=== PATIENT | female | born 1980 | race Caucasian/White ===

== ENCOUNTER 2020-09-11 10:48 | Day surgery (SDC) | payer OTHER ==
[2020-09-09 15:38] LABS: BASOPHILS % (AUTO) 1 % (0-1); EOSINOPHILS % (AUTO) 3 % (1-7); LYMPHOCYTES % (AUTO) 30 % (22-44); MEAN CORPUSCULAR HEMOGLOBIN 31.3 pg (27.0-34.8); MEAN CORPUSCULAR HGB CONC 34.3 g/dL (32.4-35.8); MEAN PLATELET VOLUME 7.7 fL (7.4-10.4); MONOCYTES % (AUTO) 9 % (2-9); NEUTROPHILS % (AUTO) 58 % (42-75); PLATELET COUNT 223 x10^3/uL (130-400); RED BLOOD COUNT 4.39 x10^6/uL (3.82-5.3)
[2020-09-09 15:40] LABS: MD NO
[~2020-09-11] VITALS: Ht 162.6 cm; Wt 58.5 kg
[~2020-09-11 10:48] MED LIST: DEXAMETHASONE 4 MG/ML, 1ML ONE; KETOROLAC 30 MG/1 ML ONE; LACT1CAP35 PO; ONDANSETRON 2MG/ML, 2ML ONE; PNV1TABL11 PO
[2020-09-11] MEDS ORDERED: MIDAZOLAM 1 MG/ML, 2ML ONE ×2 (11:18→12:24)
[2020-09-11] MEDS ORDERED: FENTANYL PF 100 MCG/2ML ONE (11:18)
[2020-09-11 11:22] VITALS: BP 103/66
[2020-09-11] MEDS ORDERED: LABETALOL 5MG/ML, 20ML IV PRN ×2 (11:30→13:30)
[2020-09-11] MEDS ORDERED: LIDOCAINE-MPF 1%, 2ML INFIL ONE (11:30)
[2020-09-11] MEDS ORDERED: PROMETHAZINE 25 MG/ML, 1ML IVPush PRN ×2 (11:30→13:30)
[2020-09-11] MEDS ORDERED: HYDROmorphone 1 MG/ML, 1ML INJ IVPush PRN ×2 (11:30→13:30)
[2020-09-11] MEDS ORDERED: CHLORHEXIDINE 15 ML UDC PO ONE (11:30)
[2020-09-11] MEDS ORDERED: ALBUTEROL SULFATE 2.5 MG/3 ML NPPB PRN (11:30)
[2020-09-11] MEDS ORDERED: LACTATED RINGERS 1,000 ML IV SCH (11:30)
[2020-09-11] MEDS ORDERED: FENTANYL PF 100 MCG/2ML IV PRN ×2 (11:30→13:30)
[2020-09-11] MEDS ORDERED: DIAZEPAM 5 MG/ML, 2ML IVPush PRN (11:30)
[2020-09-11] MEDS ORDERED: OXYcodone 5 MG/5 ML ORAL.SOL UDC PO PRN ×2 (11:30→13:30)
[2020-09-11] MEDS ORDERED: MEPERIDINE/PF 25MG/0.5ML IVPush PRN ×2 (11:30→13:30)
[2020-09-11] MEDS ORDERED: ACETAMINOPHEN 325 MG TABLET PO PRN ×2 (11:30→13:30)
[2020-09-11] MEDS ORDERED: FENTANYL PF 250 MCG/5ML ONE (12:24)
[2020-09-11] MEDS ORDERED: SILVER NITRATE STICK TP ONE (12:31)
[2020-09-11] MEDS ORDERED: METHYLERGONOVINE 0.2 MG/ML IM ONE (12:31)
[2020-09-11] MEDS ORDERED: DOXYCYCLINE 100 MG VIAL ONE (12:31)
[2020-09-11] MEDS ORDERED: OXYTOCIN 10 UNITS/ML, 1ML ONE (12:31)
[2020-09-11] MEDS ORDERED: MISOPROSTOL 200 MCG TABLET ONE (12:31)
[2020-09-11] MEDS ORDERED: PROPOFOL 50 ML ONE (12:48)
[2020-09-11] MEDS ORDERED: BUPIVACAINE/PF 0.25% ONE (13:00)
[2020-09-11] MEDS ORDERED: LORazepam 2 MG/ML, 1ML IVPush PRN (13:30)
[2020-09-11] MEDS ORDERED: hydrALAzine 20 MG/ML, 1ML IV PRN (13:30)
[2020-09-11] MEDS ORDERED: METHOCARBAMOL 1,000 MG in DEXTROSE 5% 100 ML IV PRN (13:30)
[2020-09-11] MEDS ORDERED: ONDANSETRON 2MG/ML, 2ML IVPush PRN (13:30)
[2020-09-11] MEDS ORDERED: EPHEDRINE 50 MG/ML, 1ML IVPush PRN (13:30)
== END 2020-09-11 15:23 | disposition home or self-care (01) ==
LOC: OUT 10:48
PROVIDERS: ATTEND Obstetrics & Gynecology
DX: O02.1 Missed abortion (principal); F32.9 Major depressive disorder, single episode, unspecified; Z20.822 Contact with and (suspected) exposure to COVID-19
CPT/HCPCS: 36415; 59820; 85025; 86850; 86900; 88305; J2210; J2250; J2704; J3010; J7120; U0003; J1100; J1885; J2405; J2590